=== PATIENT | male | born 1990 | race Caucasian/White ===

== ENCOUNTER 2018-01-09 21:23 | Emergency (ER) | payer OTHER ==
[~2018-01-09] VITALS: Ht 175.3 cm; Wt 83.9 kg
[2018-01-09 21:51] VITALS: BP 139/71
--- NOTE | 2018-01-09 22:39 | PHYS DOC ---
Past Medical History Past Medical History: No Pertinent History Additional Past Surgical Histo: HAMATE REMOVAL, GLAND REMOVAL IN NECK Alcohol Use: Occasionally Drug Use: None Adult General Chief Complaint Chief Complaint: UPPER EXTREMITY INJURY HPI HPI Patient is a 27 year old male who presents with pain in his left elbow after he was hit by a fastball. 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 He states that he was playing a game this evening when the injury occurred. He does have range of motion intact but states that it is painful and he does have swelling developing. He denies any other injury. Review of Systems Review of Systems Constitutional: Denies fever or chills [] Respiratory: Denies cough or shortness of breath [] Cardiovascular: No additional information not addressed in HPI [] Musculoskeletal: See history of present illness Integument: Denies rash or skin lesions [] Neurologic: Denies headache, focal weakness or sensory changes [] Endocrine: Denies polyuria or polydipsia [] All other systems were reviewed and found to be within normal limits, except as documented in this note. Allergies Allergies Allergies Coded Allergies Type Severity Reaction Last Updated Verified No Known Drug Allergies 01/09/18 No Physical Exam Physical Exam Constitutional: Well developed, well nourished, no acute distress, non-toxic appearance. [] Cardiovascular:Heart rate regular rhythm, no murmur [] Lungs & Thorax: Bilateral breath sounds clear to auscultation [] Abdomen: Bowel sounds normal, soft, no tenderness, no masses, no pulsatile masses. [] Skin: Warm, dry, no erythema, no rash. [] Back: No tenderness, no CVA tenderness. [] Extremities: tenderness to left elbow with moderate edema, no cyanosis, no clubbing, ROM slightly decreased due to pain Neurologic: Alert and oriented X 3, normal motor function, normal sensory function, no focal deficits noted. [] Psychologic: Affect normal, judgement normal, mood normal. [] Current Patient Data Vital Signs Vital Signs Date Time Temp Pulse Resp B/P (MAP) Pulse Ox O2 Delivery O2 Flow Rate FiO2 01/09/18 21:51 98.6 66 20 139/71 (93) 98 Room Air 98.6 EKG EKG [] Radiology/Procedures Radiology/Procedures [] PATIENT: JAM POND ACCOUNT: [id number] : 1990 LOCATION: ER AGE: 27 SEX: M EXAM STATUS: REG ER ORD. 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 TECHNIQUE: 3 views of the left elbow COMPARISON: None FINDINGS: No acute fracture or dislocation. No elbow joint effusion. No soft tissue abnormality. IMPRESSION: No acute findings. Electronically signed by: Jose Dotson DO (01/09/2018 10:42 PM) [facility] DICTATED and SIGNED BY: JOSE DOTSON DO DATE: 01/09/182240 Course & Med Decision Making Course & Med Decision Making Pertinent Labs and Imaging studies reviewed. (See chart for details) []The patient is wearing a sling for comfort that was applied by his team boxing trainer. Dragon Disclaimer Dragon Disclaimer This electronic medical record was generated, in whole or in part, using a voice recognition dictation system. Departure Departure Impression: Primary Impression: Contusion Disposition: 01 HOME, SELF-CARE Condition: STABLE Referrals: NO PCP (PCP) Patient Instructions: Contusion, RICE - Routine Care for Injuries Additional Instructions: RICE the extremity. You may use ibuprofen or Tylenol as needed for pain. Follow- up with your orthopedic surgeon or primary care provider for further evaluation if not improving in 10 days. Return to the emergency department if worsening. TAWANDA ARAIZA APRN Jan 09, 2018 22:39
--- NOTE | 2018-01-09 22:45 | RAD ---
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 Fast multilevel. TECHNIQUE: 3 views of the left elbow COMPARISON: None FINDINGS: No acute fracture or dislocation. No elbow joint effusion. No soft tissue abnormality. IMPRESSION: No acute findings. Electronically signed by: Jose Shaw DO (01/09/2018 10:42 PM) [facility]
== END 2018-01-09 22:00 | disposition home or self-care (01) ==
LOC: ER 21:23
DX: S50.02XA Contusion of left elbow, initial encounter (principal); W21.03XA Struck by baseball, initial encounter; Y93.89 Activity, other specified; Y92.89 Other specified places as the place of occurrence of the external cause; Y99.8 Other external cause status
CPT/HCPCS: 73080; 99284